=== PATIENT | male | born 1940 | race Caucasian/White ===

== ENCOUNTER 2018-02-03 13:52 | Emergency (ER) | payer BC ==
[~2018-02-03] VITALS: Ht 182.9 cm; Wt 63.6 kg
[~2018-02-03 13:52] MED LIST: B COMPLEX1 TA4 PO; B-1100 MG PO; CLINDAMYCIN; CO Q-1010 MG PO; GENTAMICIN; MINOCYCLIN100 MG/CAP; MVI PO; PHENERGAN W/CO120 ML PO; PREDNISONE20 MG PO; VITAMIN E100 I3 PO; VITAMINC1000TA PO; [UNRECOGNIZED DRUG - OTHER]; [UNRECOGNIZED DRUG - OTHER] PO
[2018-02-03 13:56] VITALS: TEMP 97.7
[2018-02-03 14:24] LABS: COLLECTION METHOD CLEAN CATCH
[2018-02-03 14:31] LABS: MUCOUS Present /lpf; PH 5 (5-8); SQUAMOUS EPITHELIAL None Seen /hpf; URINE APPEARANCE Clear; URINE BACTERIA None Seen /hpf; URINE BILIRUBIN Negative (NEGATIVE); URINE BLOOD Negative (NEGATIVE); URINE COLOR Yellow; URINE GLUCOSE Negative (NEGATIVE); URINE KETONE Trace (NEGATIVE); URINE LEUKOCYTE ESTERASE Negative (NEGATIVE); URINE NITRATE Negative (NEGATIVE); URINE PROTEIN(semi-quant) 1+ (NEGATIVE); URINE RBC 0-2 /hpf; URINE UROBILINOGEN Negative (NEGATIVE)
[2018-02-03 14:46] LABS: BASO % 0.1 % (0.0-2.0); EOS % 0.3 % (0-4.0); GRAN # 6.4 (1.4-6.5); HEMATOCRIT 40.8 % (42.0-52.0); HEMOGLOBIN 13.7 g/dl (13.5-18.0); LYMPH # 0.7 (1.2-3.4); MEAN CELL VOLUME 93 fl (80.0-100.0); MEAN CORPUSCULAR HEMOGLOBIN 31 pg (27.0-31.0); MEAN CORPUSCULAR HGB CONC 34 g/dl (33.0-37.0); MEAN PLATELET VOLUME 9.8 fl (7.4-10.4); MONO # 0.5 (0.1-0.6); PLATELET COUNT 136 K/mm3 (130-400); RED BLOOD COUNT 4.38 M/mm3 (4.20-5.60); REDCELL DISTRIBUTION WIDTH-CV 13.2 % (11.5-14.5)
[2018-02-03 14:52] LABS: PROTHROMBIN TIME 11.1 SECONDS (9.7-12.8)
[2018-02-03 14:54] LABS: PARTIAL THROMBOPLASTIN TIME 37.5 SECONDS (26.0-37.0)
[2018-02-03 14:56] LABS: ALBUMIN 4.3 gm/dL (3.5-5.0); BILIRUBIN,TOTAL 0.7 mg/dL (0.0-1.0); CALCIUM 9.4 mg/dL (8.4-10.2); CREATININE, serum 0.68 mg/dL (0.66-1.25); POTASSIUM 4.2 mmol/L (3.4-5.0); TOTAL PROTEIN 7.3 gm/dL (6.4-8.2)
[2018-02-03] MEDS ORDERED: NORCO 325 MG-51 TAB PO (15:14)
[2018-02-03] MEDS ORDERED: ZOFRAN 4MG T4 MG/TAB PO (16:14)
[2018-02-03 16:26] VITALS: BP 149/78; PULSE 62
== END 2018-02-03 16:45 | disposition home or self-care (01) ==
LOC: COL.ER 13:52
PROVIDERS: Emergency Medicine
DX: S22.32XA Fracture of one rib, left side, initial encounter for closed fracture (principal); J93.9 Pneumothorax, unspecified; W55.12XA Struck by horse, initial encounter; Y92.009 Unspecified place in unspecified non-institutional (private) residence as the place of occurrence of the external cause
CPT/HCPCS: A9284; J7040; Q9967

== ENCOUNTER → 2018-02-11 | Outpatient (CLI) | payer BC ==
[~2018-02-11] MED LIST changes: +NORCO 325 MG-51 TAB PO; +ZOFRAN 4MG T4 MG/TAB PO
== END ==
LOC: COL.RAD 14:22
DX: R07.9 Chest pain, unspecified (principal)

== ENCOUNTER 2018-07-29 15:45 | Emergency (ER) | payer BC ==
[~2018-07-29] VITALS: Ht 182.9 cm; Wt 63.6 kg
[2018-07-29 15:48] VITALS: TEMP 98.9
[2018-07-29 16:21] LABS: BASO % 0.1 % (0.0-2.0); GRAN # 6.5 (1.4-6.5); GRAN % 93.2 % (42.2-75.2); HEMATOCRIT 38.3 % (42.0-52.0); HEMOGLOBIN 12.6 g/dl (13.5-18.0); LYMPH # 0.2 (1.2-3.4); LYMPH % 2.2 % (20.0-51.0); MEAN CELL VOLUME 92 fl (80.0-100.0); MEAN CORPUSCULAR HEMOGLOBIN 30 pg (27.0-31.0); MEAN CORPUSCULAR HGB CONC 33 g/dl (33.0-37.0); MEAN PLATELET VOLUME 9.4 fl (7.4-10.4); MONO # 0.3 (0.1-0.6); MONO % 4.2 % (1.7-9.3); PLATELET COUNT 158 K/mm3 (130-400); RED BLOOD COUNT 4.15 M/mm3 (4.20-5.60); REDCELL DISTRIBUTION WIDTH-CV 13.3 % (11.5-14.5)
[2018-07-29 16:26] LABS: INR 1.2 (0.8-3.0); PROTHROMBIN TIME 13.4 SECONDS (9.7-12.8)
[2018-07-29 16:49] LABS: ALANINE AMINOTRANSFERASE 34 U/L (21-72); ALBUMIN 3.8 gm/dL (3.5-5.0); ALKALINE PHOSPHATASE 82 U/L (50-136); ANION GAP 7 mmol/L (7-16); AST,SGOT 49 U/L (15-37); BILIRUBIN,TOTAL 0.7 mg/dL (0.0-1.0); BLOOD UREA NITROGEN 21 mg/dL (9-20); C-REACTIVE PROTEIN 8.7 mg/dL (0.0-0.9); CARBON DIOXIDE 26 mmol/L (22-30); CHLORIDE 102 mmol/L (98-107); CREATININE, serum 0.57 mg/dL (0.66-1.25); GLUCOSE 97 mg/dL (74-106); LIPASE 24 U/L (23-300); POTASSIUM 4.1 mmol/L (3.4-5.0); SODIUM 135 mmol/L (137-145); TOTAL PROTEIN 6.9 gm/dL (6.4-8.2)
[2018-07-29 17:00] LABS: TROPONIN-I < 0.012 ng/mL (0.000-0.034)
[2018-07-29 17:13] LABS: COLLECTION METHOD CLEAN CATCH
[2018-07-29 17:23] LABS: AMORPHOUS CRYSTAL Present /uL; MUCOUS Present /lpf; PH 5 (5-8); SQUAMOUS EPITHELIAL 0-2 /hpf; URINE APPEARANCE Clear; URINE BACTERIA None Seen /hpf; URINE BILIRUBIN Negative (NEGATIVE); URINE BLOOD Negative (NEGATIVE); URINE COLOR Yellow; URINE GLUCOSE Negative (NEGATIVE); URINE KETONE 1+ (NEGATIVE); URINE LEUKOCYTE ESTERASE Negative (NEGATIVE); URINE NITRATE Negative (NEGATIVE); URINE PROTEIN(semi-quant) 2+ (NEGATIVE); URINE RBC 0-2 /hpf; URINE UROBILINOGEN Negative (NEGATIVE)
[2018-07-29] MEDS ORDERED: CIPRO 500MG TA500 MG PO (19:04)
[2018-07-29] MEDS ORDERED: PERCOCET 325 MG1 TA2 PO (21:39)
[2018-07-29] MEDS ORDERED: CLEOCIN HCL300 MG PO (21:39)
[2018-07-29] MEDS ORDERED: ZOFRAN 4MG T4 MG/TAB PO (21:39)
[2018-07-29] MEDS ORDERED: LEVAQUIN 750MG750 M1 PO (21:39)
[2018-07-29 21:48] VITALS: BP 115/62; PULSE 80
== END 2018-07-29 22:15 | disposition home or self-care (01) ==
LOC: COL.ER 15:45
PROVIDERS: Emergency Medicine
DX: J18.1 Lobar pneumonia, unspecified organism (principal); J86.9 Pyothorax without fistula; M54.6 Pain in thoracic spine; Z87.442 Personal history of urinary calculi
CPT/HCPCS: J0692; J1170; J1885; J2405; J7030; Q9967

== ENCOUNTER → 2018-08-18 | Outpatient (CLI) | payer BC ==
[~2018-08-18] VITALS: Ht 182.9 cm; Wt 60.7 kg
[~2018-08-18] MED LIST changes: +B COMPLEX #11 TAB PO; -B COMPLEX1 TA4 PO; +CIPRO 500MG TA500 MG PO; +CLEOCIN HCL300 MG PO; -CO Q-1010 MG PO; +LEVAQUIN 750MG750 M1 PO; +PERCOCET 325 MG1 TA2 PO; +THE MEDICINE S200 M2 PO
[2018-08-18 12:41] VITALS: BP 149/83; PULSE 89
[2018-08-18 13:37] VITALS: BP 149/88; PULSE 95
== END ==
LOC: COL.RAD 12:15
DX: J90 Pleural effusion, not elsewhere classified (principal); I31.3 Pericardial effusion (noninflammatory); I51.7 Cardiomegaly

== ENCOUNTER 2023-11-12 16:26 | Emergency (ER) | payer BC ==
[~2023-11-12] VITALS: Ht 182.9 cm; Wt 63.6 kg
[2023-11-12 16:29] VITALS: TEMP 98.1
[2023-11-12] MEDS ORDERED: NS 1,000 ML IV ONE ×2 (16:45→18:15)
[2023-11-12 17:37] LABS: ALBUMIN 2.9 g/dL (3.4-4.8); C-REACTIVE PROTEIN 10.91 mg/dL (0.00-0.50); CALCIUM 9.4 mg/dL (8.4-10.2); CREATININE, serum 0.73 mg/dL (0.72-1.25); POTASSIUM 4.4 mEq/L (3.5-4.5); TOTAL PROTEIN 6.2 g/dl (6.2-8.1)
[2023-11-12 17:43] LABS: TROPONIN-I 0.013 ng/mL (0.00-0.033)
[2023-11-12 17:58] LABS: BILIRUBIN,TOTAL 0.7 mg/dL (0.2-1.2)
[2023-11-12 18:01] LABS: BASO % 0.1 % (0.0-2.0); EOS % 0.1 % (0.0-4.0); GRAN # 7.5 K/mm3 (1.4-6.5); GRAN % 85.6 % (42.2-75.2); HEMATOCRIT 39.9 % (42.0-52.0); HEMOGLOBIN 12.9 g/dl (13.5-18.0); LYMPH # 0.5 K/mm3 (1.2-3.4); LYMPH % 5.6 % (20.0-51.0); MEAN CELL VOLUME 95 fl (80.0-100.0); MEAN CORPUSCULAR HEMOGLOBIN 31 pg (27-31); MEAN CORPUSCULAR HGB CONC 32 g/dl (33.0-37.0); MEAN PLATELET VOLUME 10.5 fl (7.4-10.4); MONO # 0.7 K/mm3 (0.1-0.6); MONO % 8.1 % (1.7-9.3); PLATELET COUNT 138 K/mm3 (130-400); RED BLOOD COUNT 4.19 M/mm3 (4.20-5.60); REDCELL DISTRIBUTION WIDTH-CV 14.1 % (11.5-14.5)
[2023-11-12 18:09] LABS: COLLECTION METHOD CLEAN CATCH
[2023-11-12 18:30] LABS: PH 6.5 (5.0-8.5); URINE APPEARANCE CLEAR (CLEAR/HAZY); URINE BLOOD NEGATIVE (NEGATIVE); URINE COLOR YELLOW (YELLOW); URINE GLUCOSE NEGATIVE (NEGATIVE); URINE KETONE 1+ (NEGATIVE); URINE NITRATE NEGATIVE (NEGATIVE); URINE PROTEIN(semi-quant) 2+ (NEGATIVE)
[2023-11-12 20:51] VITALS: BP 129/69; PULSE 83
== END 2023-11-12 21:02 | disposition short-term general hospital (02) ==
LOC: COL.ER 16:26
PROVIDERS: Nurse Practitioner
DX: R41.82 Altered mental status, unspecified (principal); F03.90 Unspecified dementia, unspecified severity, without behavioral disturbance, psychotic disturbance, mood disturbance, and anxiety
CPT/HCPCS: J7030